=== PATIENT | female | born 1960 | race Caucasian/White ===

== ENCOUNTER 2025-06-26 12:46 | Inpatient (IN) | payer MEDICARE, OTHER ==
[~2025-06-26] VITALS: Ht 170.2 cm; Wt 107.1 kg
[2025-06-26] MEDS ORDERED: MORP2SYR7 IV (13:38)
[2025-06-26] MEDS ORDERED: TOPI-97 PO (13:38)
[2025-06-26] MEDS ORDERED: TEMA15CA PO (13:38)
[2025-06-26] MEDS ORDERED: ATOR10TA PO (13:38)
[2025-06-26] MEDS ORDERED: DILT-4 PO (13:38)
[2025-06-26] MEDS ORDERED: LACO50TA2 PO (13:38)
[2025-06-26] MEDS ORDERED: MAG355OR18 PO (13:38)
[2025-06-26] MEDS ORDERED: [UNRECOGNIZED DRUG - CODE] PO (13:38)
[2025-06-26] MEDS ORDERED: ONDA4VIA5 IV (13:38)
[2025-06-26] MEDS ORDERED: PANT40TA2 PO (13:38)
[2025-06-26 14:26] VITALS: BP 128/82; TEMP 97.9
[2025-06-26 14:34] VITALS: BP 128/82; TEMP 97.9
[2025-06-26 14:51] VITALS: BP 128/82; TEMP 97.9
[2025-06-26 20:40] VITALS: BP 144/64; TEMP 97.6; O2SAT 95
[2025-06-27] MEDS ORDERED: GABA300C PO (01:12)
[2025-06-27] MEDS ORDERED: BUDE10.22 INH (01:12)
[2025-06-27] MEDS ORDERED: SEMA14TA2 PO (01:12)
[2025-06-27] MEDS ORDERED: MIRA50TA PO (01:12)
[2025-06-27] MEDS ORDERED: LORA5SOL38 PO (01:12)
[2025-06-27] MEDS ORDERED: POTA-203 PO (01:12)
[2025-06-27] MEDS ORDERED: FLUT16SP16 BNOSTRILS (01:12)
[2025-06-27] MEDS ORDERED: FOLI1TAB27 PO (01:12)
[2025-06-27] MEDS ORDERED: ESTR42.5 VG (01:12)
[2025-06-27] MEDS ORDERED: EMPA1TAB21 PO (01:12)
[2025-06-27] MEDS ORDERED: LACO50TA2 PO (01:12)
[2025-06-27] MEDS ORDERED: FLUV80TA PO (01:12)
[2025-06-27] MEDS ORDERED: MAGN400O6 PO (01:22)
[2025-06-27] MEDS: ACETAMINOPHEN 325 MG TABLET PO PRN (03:55)
[2025-06-27] MEDS: ONDANSETRON 4 MG/2 ML VIAL IV PRN (05:04)
[2025-06-27 05:18] VITALS: BP 143/77; TEMP 97.8; O2SAT 96
[2025-06-27 07:00] LABS: PLATELET COUNT (AUTO) 268 K/uL (179-408); RED BLOOD CELL COUNT(AUTO) 5.27 MIL/uL (3.63-4.92); RED CELL DISTRIBUTION WIDTH 15.6 % (12.3-17.7); WHITE BLOOD COUNT (AUTO) 7.9 K/uL (3.8-11.8)
[2025-06-27 07:11] LABS: CREATININE 1.0 mg/dL (0.6-1.3); SODIUM SERUM 137.0 mmol/L (136-145); UREA NITROGEN, BLOOD 11.0 mg/dL (7-18)
[2025-06-27 08:10] VITALS: BP 129/64; TEMP 97.8; O2SAT 96
[2025-06-27] MEDS ORDERED: [UNRECOGNIZED DRUG - CODE] PO (09:21)
[2025-06-27] MEDS ORDERED: FURO-152 PO (09:21)
[2025-06-27] MEDS ORDERED: LORA-114 PO (09:21)
[2025-06-27] MEDS ORDERED: FLUV40CA6 PO (09:21)
[2025-06-27] MEDS ORDERED: DEXTROSE 50% 50 ML DISP.SYRIN IV PRN (10:00)
[2025-06-27] MEDS ORDERED: INSULIN REGULAR, HUMAN 300 UNITS/3 ML VIAL SQ PRN (10:00)
[2025-06-27] MEDS ORDERED: MAGNESIUM HYDROXIDE 30 ML LIQUID UDC PO PRN (10:15)
[2025-06-27] MEDS: LORATADINE 10 MG TABLET PO SCH (11:09)
[2025-06-27] MEDS: FOLIC ACID 1 MG TABLET PO SCH (11:09)
[2025-06-27] MEDS: LACOSAMIDE 50 MG TABLET PO SCH (11:10)
[2025-06-27] MEDS: TOPIRAMATE 25 MG TABLET PO SCH (11:10)
[2025-06-27] MEDS: BLOOD SUGAR DIAGNOSTIC 1 EACH STRIP VI SCH (11:15)
[2025-06-27] MEDS: INSULIN REGULAR, HUMAN 1000 UNIT/10 ML VIAL SQ PRN (11:35)
[2025-06-27] MEDS: GABAPENTIN 300 MG CAPSULE PO SCH (12:12)
[2025-06-27] MEDS: METFORMIN XR 500 MG TAB.SR.24H PO SCH (12:13)
[2025-06-27] MEDS: EMPAGLIFLOZIN 25 MG TABLET PO SCH (12:13)
[2025-06-27 12:30] VITALS: BP 173/94; TEMP 97.6; O2SAT 96
[2025-06-27] MEDS: PSEUDOEPHEDRINE HCL 30 MG TABLET PO PRN (12:56)
[2025-06-27] MEDS ORDERED: POTASSIUM CITRATE 10 MEQ PO SCH (13:00)
[2025-06-27 16:18] VITALS: BP 147/74; TEMP 97.9; O2SAT 97
[2025-06-27] MEDS: FUROSEMIDE 20 MG TABLET PO SCH (16:44)
[2025-06-27] MEDS ORDERED: DILT-4 PO (17:25)
[2025-06-27] MEDS ORDERED: ATORVASTATIN 10 MG TABLET PO SCH (21:00)
[2025-06-28] MEDS ORDERED: Medication Not On Formulary EA (Semaglutide (Rybelsus) 14 MG) PO SCH (09:00)
[2025-06-28] MEDS ORDERED: Medication Not On Formulary EA (Mirabegron (Myrbetriq) 50 MG) PO SCH (09:00)
[2025-06-28] MEDS ORDERED: EMPAGLIFLOZIN PO SCH (09:00)
[2025-06-28] MEDS ORDERED: [UNRECOGNIZED DRUG - OTHER] PO SCH (09:00)
[2025-06-28] MEDS ORDERED: DILTIAZEM HCL CD 240 MG CAP.SR.24H PO SCH (09:00)
[2025-06-28] MEDS ORDERED: METFORMIN HCL PO SCH (09:00)
== END 2025-06-27 21:30 | disposition home health service (06) | DRG 292 ==
LOC: UNDOADMIN 12:46 → SA1 12:46 → MEDSURG3 21:07
PROVIDERS: ADMIT Physical Medicine & Rehabilitation Pain Medicine; ATTEND Physical Medicine & Rehabilitation Pain Medicine
DX: I11.0 Hypertensive heart disease with heart failure (principal); D68.59 Other primary thrombophilia; E66.01 Morbid (severe) obesity due to excess calories; G40.909 Epilepsy, unspecified, not intractable, without status epilepticus; I71.21 Aneurysm of the ascending aorta, without rupture; J45.909 Unspecified asthma, uncomplicated; I50.9 Heart failure, unspecified; D72.829 Elevated white blood cell count, unspecified; E78.5 Hyperlipidemia, unspecified; Z88.0 Allergy status to penicillin; Z88.6 Allergy status to analgesic agent; Z68.37 Body mass index [BMI] 37.0-37.9, adult
CPT/HCPCS: 36415; 71046; 85025; 97535-GO-CO; A4663; J1815; J2405